=== PATIENT | male | born 1975 | race Caucasian/White ===

== ENCOUNTER 2020-04-26 23:03 | Emergency (ER) | payer MEDICAID ==
[~2020-04-26] VITALS: Ht 172.7 cm; Wt 81.7 kg
[2020-04-26] MEDS ORDERED: VENLAFAXINE HC225 MG PO (23:23)
[2020-04-26] MEDS ORDERED: FLEXERIL PO (23:23)
[2020-04-26] MEDS ORDERED: CIPRO500 M1 PO (23:26)
[2020-04-26] MEDS ORDERED: CELEXA 20 MG TA20 MG PO (23:27)
[2020-04-26] MEDS ORDERED: MINIPRESS5 MG PO (23:28)
[2020-04-26] MEDS ORDERED: CLONAZEPAM 0.50.5 M1 PO (23:28)
[2020-04-26] MEDS ORDERED: FLORINEF ACETA0.1 MG PO (23:29)
[2020-04-26] MEDS ORDERED: JULUCA 50-25 M1 EACH PO (23:29)
[2020-04-26] MEDS ORDERED: AMBIEN CR12.5 MG PO (23:30)
[2020-04-26] MEDS ORDERED: CALCIUM + VITA1 EACH PO (23:31)
[2020-04-26] MEDS ORDERED: ABILIFY15 MG PO (23:31)
[2020-04-26 23:36] LABS: HEMATOCRIT 42.6 % (42.0-52.0); HEMOGLOBIN 14.9 gm/dL (14.0-18.0); MCH 33.4 pg (26.0-34.0); MCV 95.2 fL (80.0-100.0); MPV 6.9 fl. (7.2-11.1); NUCLEATED RBCS 0 /100WBC; PLATELET COUNT* 263 thou/uL (150-400); RBC 4.47 mil/uL (4.50-6.00); RDW-CV 13.6 % (10.5-14.5)
[2020-04-26 23:45] LABS: CALCIUM 8.6 mg/dL (8.5-10.1); CREATININE 1.3 mg/dL (0.6-1.3); POTASSIUM 3.8 mmol/L (3.5-5.1)
[2020-04-26 23:50] LABS: ALBUMIN 3.5 g/dL (3.4-5.0); TOTAL PROTEIN 7.4 g/dL (6.4-8.2)
[2020-04-27 00:01] LABS: ABSOLUTE LYMPHOCYTES 0.7 thou/uL (0.8-5.3); ABSOLUTE MONOCYTES 0.1 thou/uL (0.0-1.2); ABSOLUTE NEUTROPHILS 9.2 thou/uL (1.6-8.1); LARGE PLATELETS FEW; PLATELET ESTIMATE ADEQUATE; TOXIC GRANULATION 1+
[2020-04-27 00:42] LABS: ESR (SEDRATE) 2 mm/hr (0-15)
[2020-04-27 01:38] LABS: URINE BILIRUBIN NEGATIVE (Negative); URINE BLOOD NEGATIVE (Negative); URINE CLARITY CLEAR; URINE COLOR YELLOW; URINE GLUCOSE-RANDOM NEGATIVE (Negative); URINE KETONES NEGATIVE (Negative); URINE LEUKOCYTES-REFLEX NEGATIVE (Negative); URINE NITRITE-REFLEX NEGATIVE (Negative); URINE PROTEIN NEGATIVE (Negative); URINE SPECIFIC GRAVITY <= 1.005 (1.005-1.030); URINE UROBILINOGEN 0.2 E.U./dl (0.2-1.0)
[2020-04-27 01:46] LABS: AMP/METHAMP POSITIVE (Negative); BARBITURATES Negative (Negative); BENZODIAZEPINES Negative (Negative); COCAINE Negative (Negative); METHADONE Negative (Negative); OPIATES Negative (Negative); PCP Negative (Negative); THC Negative (Negative)
[2020-04-27 02:17] VITALS: BP 121/70
--- NOTE | 2020-04-27 10:13 | EKG ---
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
== END 2020-04-27 02:19 | disposition home or self-care (01) ==
LOC: M.ERS 23:03
PROVIDERS: Emergency Medicine
DX: G89.29 Other chronic pain (principal); M54.5 Low back pain; F15.10 Other stimulant abuse, uncomplicated; F12.10 Cannabis abuse, uncomplicated; Z88.1 Allergy status to other antibiotic agents; Z88.2 Allergy status to sulfonamides; Z88.8 Allergy status to other drugs, medicaments and biological substances; Z79.899 Other long term (current) drug therapy; Z86.19 Personal history of other infectious and parasitic diseases